=== PATIENT | male | born 1960 | race Two or more races ===

== ENCOUNTER → 2016-09-14 | Outpatient (CLI) | payer OTHER ==
[~2016-09-14] MED LIST: REGADENOSON 0.4 MG/5 ML DISP.SYRIN. IV ONE
--- NOTE | 2016-09-14 16:08 | RAD ---
APPROVED REPORT Test Type: Pharmacological Stress Nurse/Tech: Eliza Stacy R.N. Test Indications: pre op Cardiac History: smoker, dm Medications: see ehr Resting ECG: SR with unifocal pvcs, bigeminy Resting Heart Rate: 41 bpm Resting Blood Pressure: 128/65mmHg Pretest Chest Pain: No chest pain Nurse/Tech Notes lungs cta, heart tones regular, good radial pulse Consent: The procedure was explained to the patient in lay terms. Informed consent was witnessed. [place] eout was entered into in[employer]. History and Stress Test performed by Eliza Stacy R.N. Pharm. Details Pharmacologic stress testing was performed using 0.4mg per 5ml of regadenoson given intravenously ove r 7-10 seconds. Stress Symptoms No chest pain or symptoms. POST EXERCISE Reason for Termination: Infusion complete Target HR: No Max HR: 97 bpm Max Blood Pressure: 128/65mmHg Chest Pain: No. Arrhythmia: Yes. pt cont to have mult PVCs, bigeminy, throughout recovery ST Change: No. Imaging Protocol IMAGE PROTOCOL: Rest Tc-99m/stress Tc-99m 1 day Rest: Stress: Viability: Radiopharm.Tc99m DupmknmmoQk10n Sestamibi Dose11.9mCi 33mCi Duration 15min. 10min. Img Date 09/14/2016 09/14/2016 Inj-Img [id number]. 75min. Rest Admin Site:IV - Left AntecubitalAdministrator:JENNIFER Negron Stress Admin Site: IV - Left AntecubitalAdministrator: Jarod Hastings, RT (R)(N) STRESS DATA End Diast. Vol.119.0mlAv. Heart Rate89.0bpm End Syst. Vol.62.0mlCO Index BSA5.0L/min Myocardial Ennm603.0gEject. Jskyxwfu37.0% Stress Rates Pk. Fill Rate3.21EDV/secLVtime Pk. Fill 174.86msec Pk. Empty Rate3.14ESV/secLVtime Pk. Ssxzu849.09msec 05/08 Pk. Fill0.54EDV/sec Stress Scores Regional WT1.00Summed WT15.00 Regional WM0.00Summed WM10.00 LV Perfusion There is a large size, severe in intensity basal to mid inferolateral and lateral perfusion defect on stress and rest images. There is mild beatriz-infarct reversibility but the defect overall in the basal segments appear to be non viable. The more mid to distal segments appear to viable based on uptake o n rest images. Wall Motion Mild LV dysfunction with EF of 48% and severe inferolateral wall hypokinesis. LV Perf. Quant 17 Seg. SSS12.00 17 Seg. SRS12.00 17 Seg. SDS3.00 Stress Defect Extent (% LAD)0.00Rest Defect Extent (% LAD)2.50Rev. Defect Extent (% LAD)0.00 Stress Defect Extent (% LCX) 76.30Rest Defect Extent (% LCX)40.00Rev. Defect Extent (% LCX)75.00 Stress Defect Extent (% RCA)18.90Rest Defect Extent (% RCA)28.90Rev. Defect Extent (% RCA)0.00 Stress Defect Extent (% LUCIO)22.40Rest Defect Extent (% LUCIO)19.30Rev. Defect Extent (% LUCIO)15.40 Other Information Quality:Fair Risk Assessment: Moderate-High Risk Conclusion 1. Large inferolateral perfusion defect suggestive of prior infarct with mild beatriz-infarct reversibil ity. 2. Mild to moderate LV dysfunction. EF 48%. Severe inferolateral wall hypokinesis. 3. Moderate to high risk study 4. Please see seperate report for EKG findings.
== END | disposition home or self-care (01) ==
LOC: EDBD → NM 07:33 → EDUNIT# 08:00
PROVIDERS: ATTEND Nurse Practitioner
DX: Z01.818 Encounter for other preprocedural examination (principal); I49.3 Ventricular premature depolarization
CPT/HCPCS: 78452; 93017; 96374; 96375; 96376; A9500; J2785